=== PATIENT | female | born 1975 | race American Indian/Alaskan Native ===

== ENCOUNTER 2018-02-23 00:39 | Emergency (ER) | payer SELFPAY ==
[2018-02-23] MEDS ORDERED: ASPIRIN PO ONE (01:06)
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
[2018-02-23] MEDS ORDERED: CATAPRES PO ONE (01:55)
[2018-02-23 02:40] LABS: Basophils # (Auto) 0.1 K/mm3 (0.0-0.1); Basophils % (Auto) 0.9 % (0.0-1.8); Eosinophils # (Auto) 0.1 K/mm3 (0.0-0.4); Eosinophils % (Auto) 0.7 % (0.0-4.3); Hematocrit 31.2 % (30.3-42.9); Hemoglobin 9.7 gm/dl (10.1-14.3); Lymphocytes # (Auto) 1.5 K/mm3 (1.2-5.4); Lymphocytes % (Auto) 14.7 % (13.4-35.0); Mean Corpuscular HGB Conc 31 % (30-34); Monocytes # (Auto) 0.5 K/mm3 (0.0-0.8); Monocytes % (Auto) 5.1 % (0.0-7.3); Platelet Count 282 K/mm3 (140-440); Red Blood Count 4.72 M/mm3 (3.65-5.03); Red Cell Distribution Width 17.1 % (13.2-15.2)
[2018-02-23 02:41] LABS: Mean Corpuscular Hemoglobin 21 pg (28-32); Mean Corpuscular Volume 66 fl (79-97)
[2018-02-23 02:51] LABS: INR 0.94 (0.87-1.13)
[2018-02-23 02:52] LABS: Partial Thromboplastin Time 27.7 Sec. (24.2-36.6)
[2018-02-23 03:22] LABS: BUN/Creatinine Ratio 14; Blood Urea Nitrogen 11 mg/dL (7-17); Calcium 8.8 mg/dL (8.4-10.2); Hemolysis Index 0
[2018-02-23 06:25] LABS: Bacteria,Urine 2+ /HPF (Negative); Bilirubin,Urine NEG (Negative); Blood,Urine NEG (Negative); Color,Urine Yellow (Yellow); Mucus,Urine 1+ /HPF; Urobilinogen,Urine < 2.0 mg/dL (<2.0)
[2018-02-23 06:32] LABS: HCG Qualitative,Urine Negative (Negative)
--- NOTE | 2018-02-23 07:28 | Cat Scan Report ---
FINAL REPORT EXAM: CT ANGIO CHEST HISTORY: shortness of breath TECHNIQUE: A CT angiogram was obtained the chest following the intravenous injection of 100 cc Omnipaque 350. Rotational, sagittal, and coronal MIP reconstructions were reviewed. FINDINGS: There is no evidence of pulmonary embolus or aortic dissection. The heart size is normal. Pericardial fluid is not seen. The thoracic aorta is normal in caliber. There is no evidence of adenopathy. The lungs are clear. At the thoracic inlet the thyroid gland appears normal. The skeletal structures reveal multilevel disc degeneration in the dorsal spine. In the upper abdomen the adrenal glands appear normal. The left kidney has been removed. The gallbladder reveals dependent stones. IMPRESSION: No evidence of pulmonary embolus, vascular congestion, or aortic dissection. No acute process in the chest. Gallstones. Previous left nephrectomy.
[2018-02-23 10:57] VITALS: BP 149/77
== END 2018-02-23 10:56 | disposition home or self-care (01) ==
LOC: ED 00:39
DX: R07.89 Other chest pain (principal); E66.01 Morbid (severe) obesity due to excess calories; G89.29 Other chronic pain; I10 Essential (primary) hypertension; K21.9 Gastro-esophageal reflux disease without esophagitis
CPT/HCPCS: 36415; 71275; 80048; 81001; 81025; 83880; 84484; 85025; 85379; 85610; 85730; 93005; 93010; 99285; Q9967

== ENCOUNTER 2020-04-30 20:29 | Emergency (ER) | payer SELFPAY ==
--- NOTE | 2020-04-30 20:44 | Event Note ---
ED Screening Note ED Screening Note: pt has 1 kidney r flank pain pmh obese 1 kidney htn asthma no nvd no dysuria clear dc pcp gael rx lisinopril bid hctz This initial assessment/diagnostic orders/clinical plan/treatment(s) is/are subject to change based on patients health status, clinical progression and re- assessment by fellow clinical providers in the ED. Further treatment and workup at subsequent clinical providers discretion. Patient/guardian urged not to elope from the ED as their condition may be serious if not clinically assessed and managed. Initial orders include: labs ua
[2020-04-30 21:22] LABS: Hematocrit 31.9 % (30.3-42.9); Hemoglobin 9.8 gm/dl (10.1-14.3); Mean Corpuscular HGB Conc 31 % (30-34); Mean Corpuscular Volume 67 fl (79-97); Platelet Count 324 K/mm3 (140-440); Red Blood Count 4.74 M/mm3 (3.65-5.03); Red Cell Distribution Width 16.8 % (13.2-15.2)
[2020-04-30 21:36] LABS: BUN/Creatinine Ratio 13; Blood Urea Nitrogen 13 mg/dL (7-17); Calcium 8.8 mg/dL (8.4-10.2); Hemolysis Index 9
[2020-04-30 22:40] LABS: HCG Qualitative,Urine Negative (Negative)
[2020-04-30 22:46] LABS: Bilirubin,Urine NEG (Negative); Blood,Urine NEG (Negative); Color,Urine Yellow (Yellow); Mucus,Urine FEW /HPF; Protein,Urine <15 mg/dL mg/dL (Negative); Urobilinogen,Urine < 2.0 mg/dL (<2.0)
[2020-05-01] MEDS ORDERED: cloNIDine 0.2 MG TAB PO ONE (00:09)
--- NOTE | 2020-05-01 01:20 | Cat Scan Report ---
CT ABDOMEN AND PELVIS WITHOUT CONTRAST INDICATION: Right flank pain, history of posttraumatic nephrectomy CONTRAST: Without IV COMPARISON: None available. All CT scans at this location are performed using CT dose reduction for ALARA by means of automated e xposure control. NOTE: Resolution is decreased and artifact is introduced by the patient's size. FINDINGS: Lung bases show no areas of consolidation. However, there is mild interstitial increase in markings in the right lower lobe of unclear chronicity but I cannot exclude early interstitial infilt rate. This could represent a small amount of interstitial edema as well. Left hip femoral changes are seen and prominent right hip degenerative changes are noted. No pneumope ritoneum is seen. Moderate fatty umbilical hernia is seen without acute change and without bowel. Gas tric bypass changes are noted. No evidence of bowel obstruction is seen. Appendix appears within norm al limits. Inferior vena cava cava filter is noted below the level the renal veins. Left nephrectomy changes are seen. Right kidney shows no obvious abnormalities. No obstructive change s are seen. No calculi are noted. The right ureter and bladder show no abnormalities. No free fluid is seen. No focal inflammatory changes are noted. No masses are seen. Multiple small ga llstones are noted without obvious gallbladder wall thickening or inflammation. No biliary dilatation is seen. No lymphadenopathy is noted. IMPRESSION: 1. No acute abnormalities are seen in the abdomen or pelvis 2. Mild focal increased interstitial markings in the right lower lobe. This is of unclear chronicity but could represent early interstitial infiltrate/edema. Clinical correlation is suggested. 3. Cholelithiasis Signer Name: Matthew Han MD Signed: 05/01/2020 1:15 AM Workstation Name: [id number]
[2020-05-01 01:40] VITALS: BP 166/76
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
== END 2020-05-01 02:04 | disposition home or self-care (01) ==
LOC: ED 20:29
DX: K80.50 Calculus of bile duct without cholangitis or cholecystitis without obstruction (principal); K21.9 Gastro-esophageal reflux disease without esophagitis; I10 Essential (primary) hypertension; J45.909 Unspecified asthma, uncomplicated; Z86.2 Personal history of diseases of the blood and blood-forming organs and certain disorders involving the immune mechanism; G89.29 Other chronic pain; Z98.890 Other specified postprocedural states; Z79.899 Other long term (current) drug therapy
CPT/HCPCS: 36415; 74176; 80048; 81001; 81025; 85027

== ENCOUNTER 2020-09-21 07:36 | Observation (INO) | payer MEDICAID ==
[2020-09-21] MEDS ORDERED: ASPIRIN 325 MG TAB PO ONE (07:58)
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
[2020-09-21] MEDS ORDERED: NITROGLYCERIN 2% OINT 1 GM TP ONE (09:01)
--- NOTE | 2020-09-21 09:02 | XRay Report ---
CHEST 2 VIEWS INDICATION / CLINICAL INFORMATION: Chest Pain. COMPARISON: 01/03/14. FINDINGS: SUPPORT DEVICES: None. HEART / MEDIASTINUM: The heart size and pulmonary vasculature are normal. The aorta is normal in naomi jong. LUNGS / PLEURA: No significant pulmonary or pleural abnormality. No pneumothorax. ADDITIONAL FINDINGS: No significant additional findings. IMPRESSION: No acute abnormality or significant change. Signer Name: Lester Livingston MD Signed: 09/21/2020 8:58 AM Workstation Name: [id number]
[2020-09-21 09:41] LABS: Basophils % (Auto) 0.4 % (0.0-1.8); Eosinophils # (Auto) 0.1 K/mm3 (0.0-0.4); Eosinophils % (Auto) 1.2 % (0.0-4.3); Hematocrit 31.2 % (30.3-42.9); Hemoglobin 9.7 gm/dl (10.1-14.3); Lymphocytes % (Auto) 20.5 % (13.4-35.0); Mean Corpuscular HGB Conc 31 % (30-34); Monocytes # (Auto) 0.6 K/mm3 (0.0-0.8); Monocytes % (Auto) 6.5 % (0.0-7.3); Platelet Count 270 K/mm3 (140-440); Red Blood Count 4.57 M/mm3 (3.65-5.03); Red Cell Distribution Width 17.1 % (13.2-15.2)
[2020-09-21 09:43] LABS: Mean Corpuscular Volume 68 fl (79-97)
[2020-09-21 09:52] LABS: INR 0.99 (0.87-1.13)
[2020-09-21 09:53] LABS: Partial Thromboplastin Time 29.3 Sec. (24.2-36.6)
[2020-09-21 10:00] LABS: BUN/Creatinine Ratio 19; Blood Urea Nitrogen 15 mg/dL (7-17); Calcium 8.9 mg/dL (8.4-10.2); Hemolysis Index 1
[2020-09-21 10:02] LABS: Alanine Aminotransferase 11 units/L (7-56); Albumin 3.6 g/dL (3.9-5); Bilirubin,Direct < 0.2 mg/dL (0-0.2)
[2020-09-21] MEDS ORDERED: ONDANSETRON 4 MG/2 ML INJ IV PRN (13:07)
[2020-09-21] MEDS ORDERED: ALBUTEROL 2.5 MG/3 ML NEBU IH PRN (13:07)
[2020-09-21] MEDS ORDERED: NITROGLYCERIN 0.4 MG TAB SUBL SL PRN (13:07)
[2020-09-21] MEDS ORDERED: ASPIRIN 81 MG TAB CHEW PO STA (13:07)
[2020-09-21] MEDS ORDERED: ACETAMINOPHEN 325 MG TAB PO PRN ×2 (13:07)
[2020-09-21] MEDS ORDERED: oxyCODONE /ACETAMINOPHEN 5-325MG TAB PO PRN (13:07)
[2020-09-21] MEDS ORDERED: MORPHINE 4 MG/1 ML INJ IV PRN (13:07)
--- NOTE | 2020-09-21 13:07 | History and Physical Report ---
History of Present Illness Chief complaint: My chest hurts History of present illness: 44 YO Female with HTN, Obesity Hypoventilation Syndrome, GERD, Asthma, Chronic Pain Syndrome presents to ED for evaluation. Patient states that she has experienced sudden onset chest pain this morning that awoke her from sleep and got progressively worse while ambulating to the bathroom. Patient states that pain is 7/10, initially intermittent but has become constant, localized to the left chest, radiates to the left arm, worsened with exertion, relieved with rest,. Patient acknowledges decreased exercise tolerance, dyspnea on exertion, dyspnea at rest. Patient transported to [facility] via private vehicle for further care and evaluation of the aforementioned symptoms. Patient seen and evaluated in the emergency department. All lab and imaging studies reviewed. Patient found to have accelerated hypertension with a blood pressure of 206/89 as well as clinical symptoms consistent with diastolic congestive heart failure, angina. Patient admitted to telemetry and initiated on CHF protocol. Cardiology team consulted in ED. Patient denies fever, chills, palpitation, productive cough, skin rash, recent ill contacts, prolonged travel/immobility, unilateral leg swelling, calf pain, individual/family history of DVT/PE/bleeding/blood clotting disorders, or known exposure to COVID-19. Prior admission on 12/29/2013 reviewed all medication listed at time of admission has been reconciled. Past History Past Medical History: GERD, hypertension, other (See HPI) Past Surgical History: Other (Left nephrectomy, left hip surgery left leg surgery,) Social history: single. denies: smoking, alcohol abuse, prescription drug abuse Family history: hypertension Medications and Allergies Allergies Allergy/AdvReac Type Severity Reaction Status Date / Time No Known Allergies Allergy Verified 02/23/18 01:05 Home Medications Medication Instructions Recorded Confirmed Last Taken Type Gabapentin [Neurontin] 900 mg PO QPM 12/28/13 12/28/13 12/28/13 History 1 Lisinopril/Hydrochlorothiazide 1 tab PO QDAY 12/28/13 12/28/13 12/28/13 History [Zestoretic 20-25 mg] 1 Ranitidine HCl [Zantac] 300 mg PO QDAY 12/28/13 12/28/13 12/28/13 History 1 lisinopriL [Zestril] 20 mg PO QDAY 12/28/13 12/28/13 12/28/13 History 1 Cyclobenzaprine [Flexeril 10 MG 10 mg PO TID PRN #12 tablet 08/15/15 Unknown Rx TAB] Ibuprofen [Motrin 800 MG tab] 800 mg PO Q8HR PRN #30 tablet 08/15/15 Unknown Rx Aspirin [Aspirin BABY CHEW TAB] 81 mg PO QDAY #30 tab.chew 02/23/18 Unknown Rx traMADoL [Ultram] 50 mg PO Q6HR PRN #12 tablet 05/01/20 Unknown Rx Review of Systems Constitutional: no weight loss, no weight gain, no fever, no chills Ears, nose, mouth and throat: no ear pain, no ear discharge, no decreased hearing, no nose pain Breasts: no change in shape, no swelling, no mass Cardiovascular: chest pain, shortness of breath, dyspnea on exertion, high blood pressure, decreased exercise tolerance, no palpitations Respiratory: no cough, no cough with sputum, no excessive sputum, no hemoptysis Gastrointestinal: no abdominal pain, no nausea, no vomiting, no diarrhea, no constipation Genitourinary Female: no pelvic pain, no flank pain, no dysuria, no urinary frequency, no urgency Rectal: no pain, no incontinence, no bleeding Musculoskeletal: no neck stiffness, no neck pain, no shooting arm pain, no arm numbness/tingling, no low back pain Integumentary: no rash, no pruritis, no redness, no sores, no wounds Neurological: no head injury, no transient paralysis, no paralysis, no weakness, no seizures Psychiatric: no anxiety, no memory loss, no change in sleep habits, no insomnia, no change in libido Endocrine: no cold intolerance, no heat intolerance, no nocturia Hematologic/Lymphatic: no easy bruising, no easy bleeding, no lymphadenopathy, no lymphedema Allergic/Immunologic: no urticaria, no allergic rhinitis, no anaphylaxis, no angioedema Exam - Constitutional Vitals: Temp Pulse Resp BP Pulse Ox 98.2 F 68 16 138/66 100 09/21/20 07:56 09/21/20 12:14 09/21/20 12:14 09/21/20 12:14 09/21/20 12:14 General appearance: Present: mild distress, obese - EENT Eyes: Present: PERRL ENT: hearing intact, clear oral mucosa - Neck Neck: Present: supple, normal ROM - Respiratory Respiratory effort: normal Respiratory: bilateral: CTA - Cardiovascular Heart Sounds: Present: S1 & S2. Absent: rub, click - Extremities Extremities: pulses symmetrical Extremity abnormal: edema Peripheral Pulses: within normal limits - Abdominal General gastrointestinal: Present: soft, non-tender, non-distended, normal bowel sounds Female genitourinary: Present: normal - Integumentary Integumentary: Present: clear, warm, dry - Musculoskeletal Musculoskeletal: gait normal, strength equal bilaterally - Psychiatric Psychiatric: appropriate mood/affect, intact judgment & insight - Neurologic Neurologic: CNII-XII intact, moves all extremities HEART Score - HEART Score EKG: Non-specific Age: < 45 Risk factors: 1-2 risk factors Troponin: Troponin T < 0.010 ng/mL (0.00-0.029) 09/21/20 09:06 Troponin: < normal limit - Critical Actions Critical Actions: 0-3 pts:0.9-1.7%risk of adverse cardiac event.Candidate for discharge Results - Labs CBC & Chem 7: 09/21/20 09:06 09/21/20 09:06 Labs: Abnormal lab results 09/21/20 09/21/20 09/21/20 Range/Units 09:06 09:06 09:06 Hgb 9.7 L (10.1-14.3) gm/dl MCV 68 L (79-97) fl MCH 21 L (28-32) pg RDW 17.1 H (13.2-15.2) % Seg Neutrophils % 71.4 H (40.0-70.0) % Glucose 120 H (65-100) mg/dL Albumin 3.6 L (3.9-5) g/dL Assessment and Plan - Patient Problems (1) Diastolic CHF Current Visit: Yes Status: Acute Qualifiers: Heart failure chronicity: acute Qualified Code(s): I50.31 - Acute diastolic (congestive) heart failure Plan to address problem: Strict I/O, monitor urine output every shift, daily weight, afterload reduction, blood pressure control, echocardiogram ordered and is pending at time of admission, cardiology team consulted for further care management. (2) Angina at rest Current Visit: Yes Status: Acute Plan to address problem: Serial cardiac enzymes, EKG G, telemetry, cardiology team consulted. (3) Morbid obesity with BMI of 60.0-69.9, adult Current Visit: Yes Status: Acute Plan to address problem: Balanced diet, increase physical activity at discharge, outpatient bariatric surgery follow-up. (4) Obesity hypoventilation syndrome Current Visit: Yes Status: Acute Plan to address problem: Balanced diet, increase physical activity at discharge, supplemental oxygen, pul se oximetry, noninvasive positive pressure ventilation as clinically indicated, outpatient pulmonary follow-up for sleep study. (5) Accelerated hypertension Current Visit: Yes Status: Acute Plan to address problem: Monitor blood pressure every shift, continue medical management (6) GERD (gastroesophageal reflux disease) Current Visit: Yes Status: Chronic Qualifiers: Esophagitis presence: without esophagitis Qualified Code(s): K21.9 - Gastro-esophageal reflux disease without esophagitis Plan to address problem: PPI therapy, supportive care, outpatient GI follow-up for endoscopy (7) DVT prophylaxis Current Visit: Yes Status: Acute Plan to address problem: SCD to bilateral lower extremities while in bed, patient is ambulatory.
[2020-09-21] MEDS ORDERED: CYCLOBENZAPRINE 10 MG TAB PO PRN (13:11)
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
[2020-09-21 16:07] LABS: Chol/HDL Ratio 2.37 %
[2020-09-21] MEDS ORDERED: GABAPENTIN 300 MG CAP PO SCH (18:00)
[2020-09-21 20:27] VITALS: BP 174/78
[2020-09-21] MEDS ORDERED: FAMOTIDINE 10 MG TAB PO SCH (22:00)
[2020-09-22] MEDS ORDERED: RANITIDINE HCL 300 MG PO SCH (10:00)
[2020-09-22] MEDS ORDERED: LISINOPRIL 20 MG TAB PO SCH (10:00)
[2020-09-22] MEDS ORDERED: amLODIPine 5 MG TAB PO SCH (10:00)
[2020-09-22] MEDS ORDERED: ASPIRIN 81 MG TAB CHEW PO SCH (10:00)
[2020-09-22] MEDS ORDERED: NON-FORMULARY EACH (Lisinopril/Hydrochlorothiazide [Zestoretic 20-25 Mg] 1 EACH Tablet) PO SCH (10:00)
[2020-09-22] MEDS ORDERED: hydroCHLOROthiazide 25 MG TAB PO SCH (10:00)
[2020-09-22] MEDS ORDERED: METOPROLOL TARTRATE 25 MG TAB PO SCH (10:00)
== END 2020-09-21 21:25 | disposition home or self-care (01) ==
LOC: ED 07:36 → 4A 13:51 → INTOOBSV 13:51 → 4A 14:30
PROVIDERS: ADMIT Internal Medicine; ATTEND Internal Medicine
DX: I16.0 Hypertensive urgency (principal); I11.0 Hypertensive heart disease with heart failure; I50.31 Acute diastolic (congestive) heart failure; I20.8 Other forms of angina pectoris; E66.2 Morbid (severe) obesity with alveolar hypoventilation; K21.9 Gastro-esophageal reflux disease without esophagitis; D64.9 Anemia, unspecified; J45.909 Unspecified asthma, uncomplicated; G89.4 Chronic pain syndrome; Z68.44 Body mass index [BMI] 60.0-69.9, adult; Z98.890 Other specified postprocedural states; Z79.82 Long term (current) use of aspirin
CPT/HCPCS: 36415; 71046; 80048; 80061; 80076; 83735; 83880; 84439; 84443; 84484; 85025; 85610; 85730; 93005; 96374; 99285; A9270; G0378

== ENCOUNTER 2021-04-17 23:27 | Emergency (ER) | payer MEDICAID ==
--- NOTE | 2021-04-18 01:22 | XRay Report ---
CHEST 2 VIEWS INDICATION / CLINICAL INFORMATION: Chest pain. COMPARISON: 09/21/2020 FINDINGS: SUPPORT DEVICES: None. HEART / MEDIASTINUM: No significant abnormality. LUNGS / PLEURA: No significant pulmonary or pleural abnormality. No pneumothorax. ADDITIONAL FINDINGS: No significant additional findings. IMPRESSION: 1. No acute findings. Signer Name: Kendall Salazar MD Signed: 04/18/2021 1:17 AM Workstation Name: [id number]
[2021-04-18] MEDS ORDERED: cloNIDine 0.2 MG TAB PO ONE (01:31)
[2021-04-18 01:32] LABS: Basophils % (Auto) 0.4 % (0.0-1.8); Eosinophils # (Auto) 0.2 K/mm3 (0.0-0.4); Eosinophils % (Auto) 1.6 % (0.0-4.3); Hematocrit 30.7 % (30.3-42.9); Hemoglobin 9.4 gm/dl (10.1-14.3); Lymphocytes # (Auto) 2.6 K/mm3 (1.2-5.4); Mean Corpuscular HGB Conc 31 % (30-34); Monocytes # (Auto) 0.6 K/mm3 (0.0-0.8); Monocytes % (Auto) 5.8 % (0.0-7.3); Platelet Count 263 K/mm3 (140-440); Red Blood Count 4.46 M/mm3 (3.65-5.03); Red Cell Distribution Width 17.2 % (13.2-15.2)
[2021-04-18 01:33] LABS: Mean Corpuscular Volume 69 fl (79-97)
[2021-04-18 01:54] LABS: Alanine Aminotransferase 13 units/L (7-56); Albumin 3.8 g/dL (3.9-5); BUN/Creatinine Ratio 11; Blood Urea Nitrogen 9 mg/dL (7-17); Hemolysis Index 0
--- NOTE | 2021-04-18 02:00 | Cat Scan Report ---
CT HEAD WITHOUT CONTRAST INDICATION / CLINICAL INFORMATION: Right sided headache, high blood pressure. TECHNIQUE: All CT scans at this location are performed using CT dose reduction for ALARA by means of automated e xposure control. COMPARISON: None available. FINDINGS: There is no acute intracranial hemorrhage. Ventricles are normal in size without midline shift or mas s effect. Visualized orbits appear normal. Sinuses are clear. ADDITIONAL FINDINGS: None. IMPRESSION: 1. No acute intracranial abnormality. Signer Name: Kendall Salazar MD Signed: 04/18/2021 1:55 AM Workstation Name: [id number]
[2021-04-18] MEDS ORDERED: ACETAMINOPHEN 500 MG TAB PO ONE (04:44)
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
[2021-04-18] MEDS ORDERED: hydrALAZINE 20 MG/1 ML INJ IV ONE (07:15)
[2021-04-18 08:22] VITALS: BP 174/93
--- NOTE | 2021-04-18 14:12 | Electrocardiograph Report ---
[facility] Test Date: 2021-04-18 Test Time: 00:52:24 Pat Name: ARISTIDES DESAI Department: Room: Gender: F [employer] Car Attendant: GENARO : 1975 Requested By: BRANDIE SELLERS Order Number: [id number] Reading MD: Contreras Ramirez Measurements Intervals [place] Rate: 83 P: 51 PA: 175 QRS: 63 QRSD: 85 T: -73 QT: 362 QTc: 425 Interpretive Statements Sinus rhythm LVH with nonspecific repolarization abnormalities No previous ECG available for comparison Electronically Signed On 04-18-2021 14:12:28 EDT by Contreras Ramirez
== END 2021-04-18 08:30 | disposition home or self-care (01) ==
LOC: ED 23:27
DX: R51.9 Headache, unspecified (principal); I16.0 Hypertensive urgency; I10 Essential (primary) hypertension; K21.9 Gastro-esophageal reflux disease without esophagitis; M19.91 Primary osteoarthritis, unspecified site; J45.909 Unspecified asthma, uncomplicated; Z98.890 Other specified postprocedural states; Z79.899 Other long term (current) drug therapy; Z87.891 Personal history of nicotine dependence
CPT/HCPCS: 36415; 70450; 71046; 80053; 84484; 85025; 93005; 99284; J0360

== ENCOUNTER 2021-04-23 08:21 | Emergency (ER) | payer MEDICAID ==
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
[2021-04-23 10:55] VITALS: BP 160/86
== END 2021-04-23 10:57 | disposition home or self-care (01) ==
LOC: ED 08:21
DX: B02.9 Zoster without complications (principal); R11.0 Nausea; H92.09 Otalgia, unspecified ear; I10 Essential (primary) hypertension; J45.909 Unspecified asthma, uncomplicated; K21.9 Gastro-esophageal reflux disease without esophagitis; M19.90 Unspecified osteoarthritis, unspecified site; Z98.890 Other specified postprocedural states
CPT/HCPCS: 99282

== ENCOUNTER 2021-12-09 06:14 | Emergency (ER) | payer MEDICAID ==
[2021-12-09] MEDS ORDERED: HYDROcodone/ACETAMINOPHEN 5-325 MG TAB PO ONE (06:35)
[2021-12-09] MEDS ORDERED: cloNIDine 0.2 MG TAB PO ONE (06:35)
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
[2021-12-09 07:03] LABS: Bilirubin,Urine NEG (Negative); Blood,Urine LG (Negative); Color,Urine Straw (Yellow); Urobilinogen,Urine < 2.0 mg/dL (<2.0)
[2021-12-09 07:51] LABS: BUN/Creatinine Ratio 10; Blood Urea Nitrogen 9 mg/dL (7-17); Hemolysis Index 2
[2021-12-09 08:16] VITALS: BP 177/85
== END 2021-12-09 08:16 | disposition home or self-care (01) ==
LOC: ED 06:14
DX: M54.50 Low back pain, unspecified (principal); M54.10 Radiculopathy, site unspecified; M51.36 Other intervertebral disc degeneration, lumbar region
CPT/HCPCS: 36415; 80048; 81001; 84703; 99283

== ENCOUNTER 2022-04-05 09:15 | Emergency (ER) | payer MEDICAID ==
[2022-04-05 09:25] VITALS: BP 163/85
--- NOTE | 2022-04-05 10:04 | XRay Report ---
CHEST 2 VIEWS INDICATION / CLINICAL INFORMATION: sob. COMPARISON: 04/18/2021 FINDINGS: SUPPORT DEVICES: None. HEART / MEDIASTINUM: No significant abnormality. LUNGS / PLEURA: No significant pulmonary or pleural abnormality. No pneumothorax. ADDITIONAL FINDINGS: No significant additional findings. IMPRESSION: 1. No acute findings. Signer Name: Kendall Salazar MD Signed: 04/05/2022 10:00 AM Workstation Name: [id number]
[2022-04-05] MEDS ORDERED: IPRATROPIUM/ALBUTEROL SULFATE 3 ML AMPUL.NEB IH ONE (11:10)
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
--- NOTE | 2022-04-05 19:58 | Electrocardiograph Report ---
[facility] Test Date: 2022-04-05 Test Time: 09:28:44 Pat Name: ARISTIDES DESAI Department: Room: Gender: F [employer] And Former: DALLIN : 1975 Requested By: BRANDIE SELLERS Order Number: [id number] Reading MD: Contreras Ramirez Measurements Intervals [place] Rate: 90 P: 65 GA: 171 QRS: 55 QRSD: 84 T: -54 QT: 335 QTc: 410 Interpretive Statements Sinus rhythm Nonspecific T abnormalities, inferior leads Compared to ECG 04/18/2021 00:52:24 No significant change Electronically Signed On 04-05-2022 19:58:21 EDT by Contreras Ramirez
== END 2022-04-05 12:30 | disposition home or self-care (01) ==
LOC: ED 09:15
DX: U07.1 COVID-19 (principal); R06.02 Shortness of breath; J45.909 Unspecified asthma, uncomplicated; I10 Essential (primary) hypertension; M19.90 Unspecified osteoarthritis, unspecified site; K21.9 Gastro-esophageal reflux disease without esophagitis; G89.29 Other chronic pain; D64.9 Anemia, unspecified; E66.9 Obesity, unspecified; Z98.890 Other specified postprocedural states
CPT/HCPCS: 71046; 93005; 99283

== ENCOUNTER 2022-04-29 05:15 | Emergency (ER) | payer MEDICAID ==
[2022-04-29 06:04] LABS: Basophils # (Auto) 0.1 K/mm3 (0.0-0.1); Basophils % (Auto) 0.7 % (0.0-1.8); Eosinophils # (Auto) 0.1 K/mm3 (0.0-0.4); Eosinophils % (Auto) 1.1 % (0.0-4.3); Hematocrit 31.6 % (30.3-42.9); Hemoglobin 9.7 gm/dl (10.1-14.3); Lymphocytes % (Auto) 22.9 % (13.4-35.0); Mean Corpuscular HGB Conc 31 % (30-34); Monocytes # (Auto) 0.9 K/mm3 (0.0-0.8); Platelet Count 297 K/mm3 (140-440); Red Cell Distribution Width 16.8 % (13.2-15.2)
[2022-04-29 06:13] LABS: Mean Corpuscular Volume 69 fl (79-97)
--- NOTE | 2022-04-29 06:16 | XRay Report ---
CHEST 2 VIEWS INDICATION / CLINICAL INFORMATION: CHEST PAIN. COMPARISON: 2 views of the chest from 04/05/2022. FINDINGS: SUPPORT DEVICES: None. HEART / MEDIASTINUM: No significant abnormality. LUNGS / PLEURA: No significant pulmonary abnormality. No significant pleural effusion. No pneumothora x. ADDITIONAL FINDINGS: No significant additional findings. IMPRESSION: 1. No acute abnormality of the chest. Signer Name: Tristen Echols MD Signed: 04/29/2022 6:11 AM Workstation Name: [id number]
[2022-04-29 06:47] LABS: Alanine Aminotransferase 11 units/L (7-56); Albumin 3.9 g/dL (3.9-5); BUN/Creatinine Ratio 20; Blood Urea Nitrogen 22 mg/dL (7-17); Calcium 8.8 mg/dL (8.4-10.2); Hemolysis Index 11
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
[2022-04-29 14:22] VITALS: BP 131/72
--- NOTE | 2022-04-30 18:22 | Electrocardiograph Report ---
[facility] Test Date: 2022-04-29 Test Time: 05:29:10 Pat Name: ARISTIDES DESAI Department: Room: Gender: F [employer] Technician: RODY : 1975 Requested By: KUSH PADILLA Order Number: [id number] Reading MD: Contreras Ramirez Measurements Intervals [place] Rate: 108 P: 59 PA: 163 QRS: 75 QRSD: 83 T: -47 QT: 354 QTc: 475 Interpretive Statements Sinus tachycardia Left ventricular hypertrophy, with repolarization abnormalities of LVH Compared to ECG 04/05/2022 09:28:44 No significant change Electronically Signed On 04-30-2022 18:22:03 EDT by Contreras Ramirez
--- NOTE | 2022-04-30 18:26 | Electrocardiograph Report ---
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
== END 2022-04-29 14:22 | disposition home or self-care (01) ==
LOC: ED 05:15
DX: K21.9 Gastro-esophageal reflux disease without esophagitis (principal); E66.9 Obesity, unspecified; I10 Essential (primary) hypertension; M19.90 Unspecified osteoarthritis, unspecified site; J45.909 Unspecified asthma, uncomplicated; G89.29 Other chronic pain; Z79.899 Other long term (current) drug therapy; Z79.82 Long term (current) use of aspirin
CPT/HCPCS: 36415; 71046; 80053; 82550; 83880; 84484; 85025; 93005; 99284